=== PATIENT | male | born 1960 | race Two or more races ===

== ENCOUNTER → 2018-12-14 | Outpatient (CLI) | payer OTHER | END | disposition home or self-care (01) | LOC: NUCLEAR 07:00 → EDBD 07:46 → NUCLEAR 07:46 | DX: I25.10 Atherosclerotic heart disease of native coronary artery without angina pectoris (principal); I20.9 Angina pectoris, unspecified; R60.0 Localized edema | CPT/HCPCS: 78452; 93017; A9500 ==